=== PATIENT | female | born 1995 | race Hispanic/Latino ===

== ENCOUNTER 2018-12-30 01:45 | Inpatient (IN) | payer MEDICAID ==
[~2018-12-30] VITALS: Ht 154.9 cm; Wt 78.9 kg
[2018-12-30] MEDS ORDERED: PREN-196 PO (01:58)
[2018-12-30 02:14] LABS: APPEARANCE,URINE Turbid (CLEAR); BILIRUBIN,URINE Negative (NEGATIVE); COLOR,URINE Yellow (YELLOW); GLUCOSE, URINE (UA) Negative (NEGATIVE); KETONES,URINE Negative (NEGATIVE); LEUKOCYTE ESTERASE ,URINE Moderate (NEGATIVE); NITRATE,URINE Negative (NEGATIVE); OCCULT BLOOD,URINE Small (NEGATIVE); PH,URINE 7.5 (5.0-8.0); PROTEIN,URINE Negative (NEGATIVE)
[2018-12-30 02:24] LABS: AMORPHOUS SEDIMENT,UR Moderate /LPF (None Seen); BACTERIA,URINE Few /HPF (None Seen)
[2018-12-30] MEDS ORDERED: EPHEDRINE SULFATE 50 MG/ML AMPULE IVP PRN (03:00)
[2018-12-30] MEDS ORDERED: PROMETHAZINE HCL 25 MG/ML 1ML AMPULE IM SCH (03:00)
[2018-12-30] MEDS ORDERED: MEPERIDINE-PF 50 MG/ML SYG IVP ONE (03:00)
[2018-12-30] MEDS ORDERED: NALOXONE HCL 0.4 MG/1 ML ML IV PRN (03:00)
[2018-12-30] MEDS ORDERED: OXYTOCIN-LR 20 UNITS/1000 ML 1,000 ML IV SCH (03:00)
[2018-12-30] MEDS ORDERED: LACTATED RINGERS 500 ML 500 ML IV PRN (03:00)
[2018-12-30] MEDS ORDERED: ROPIVACAINE 0.2% 100ML VIAL 100 ML EP SCH (03:00)
[2018-12-30 03:10] LABS: HEMATOCRIT 39.2 % (36-48); MEAN CORPUSCULAR HEMOGLOBIN 31.6 pg (27.0-33.0); MEAN CORPUSCULAR HGB CONC 35.4 g/dL (32.0-36.0); MEAN CORPUSCULAR VOLUME 89.3 fL (80-100); NUCLEATED RED BLOOD CELLS 0.1 % (0.0-0.19); PLATELET COUNT (AUTO) 136 K/uL (130-400); RED BLOOD CELL COUNT(AUTO) 4.39 MIL/uL (4.00-5.50); RED CELL DISTRIBUTION WIDTH 13.8 % (11.0-15.5); WHITE BLOOD COUNT (AUTO) 8.5 K/uL (4.8-10.8)
[2018-12-30] MEDS: LACTATED RINGERS 1000ML 1,000 ML IV PRN ×2 (05:35→12:45)
[2018-12-30] MEDS ORDERED: MEPERIDINE-PF 50 MG/ML SYG ONE (06:12)
[2018-12-30] MEDS ORDERED: OXYTOCIN 10 USP UNITS/ML 20 UNIT in LACTATED RINGERS 1000ML 1,000 ML IV SCH (09:30)
[2018-12-30] MEDS ORDERED: BENZOCAINE/LANOLIN/ALOE VERA 60 ML AEROSOL TP PRN (15:30)
[2018-12-30] MEDS ORDERED: ACETAMINOPHEN 325 MG TAB PO PRN (15:30)
[2018-12-30] MEDS: IBUPROFEN 600 MG TABLET PO PRN (15:30)
[2018-12-30] MEDS ORDERED: ACETAMINOPHEN-CODEINE 300/30MG TAB PO PRN (15:30)
[2018-12-30] MEDS ORDERED: LANOLIN 30GM OINTMENT TP PRN (15:30)
[2018-12-30] MEDS ORDERED: WITCH HAZEL 1 PAD TP PRN (15:30)
[2018-12-30] MEDS ORDERED: DIPH,PERTUSS(ACELL),TET VAC/PF 0.5 ML VIAL IM PRN (15:30)
[2018-12-30 18:00] VITALS: BP 116/75
--- NOTE | 2018-12-30 18:00 | NUR ---
REPORT RECEIVED FROM [facility] [place] ORIENT[place] TO ROOM AND WAS ASSISTED TO BATHROOM AND VOIDED 700CC OF BLOOD TINGED URINE. PATIENT WAS GIVEN MOTRIN PRIOR TO TRANSFER. SITZ BATH, DERMAPLAST SPRAY, TUCK AND LANOLIN ISSUED AND INSTRUCTED ON USE. PATIENT VITAL SIGNS STABLE AND TOLERATED ACTIVITY TO BATHROOM WITHOUT ANY PROBLEMS.
--- NOTE | 2018-12-30 19:10 | NUR ---
REPORT GIVEN TO CECILIA KOROMA WHILE ROUNDING ON PATIENT.
[2018-12-30 19:25] VITALS: BP 107/68
[2018-12-30] MEDS: DOCUSATE SODIUM 100 MG CAP PO SCH (21:17)
[2018-12-31] VITALS (7 sets, daily range): BP systolic 102–114; BP diastolic 61–70
[2018-12-31] MEDS: IBUPROFEN 600 MG TABLET PO PRN ×2 (05:03→17:37)
[2018-12-31] MEDS: DOCUSATE SODIUM 100 MG CAP PO SCH ×2 (08:54→21:03)
--- NOTE | 2018-12-31 19:55 | NUR ---
Patient; Patient sitting in bed expressing her Breast milk manually assisted by mother. Plan of care discussed with patient and family verbalizes understanding.
--- NOTE | 2018-12-31 20:00 | NUR ---
Patient out from her room.: Patient went to the nursery to visit baby accompanied by her mother.
[2019-01-01 04:45] VITALS: BP 117/82
[2019-01-01] MEDS: IBUPROFEN 600 MG TABLET PO PRN (04:51)
[2019-01-01 06:10] LABS: HEPATITIS Bs ANTIGEN SCREEN P Negative (Negative)
[2019-01-01 07:24] VITALS: BP 114/68
[2019-01-01] MEDS: DOCUSATE SODIUM 100 MG CAP PO SCH (09:08)
[2019-01-01 11:37] VITALS: BP 106/70
--- NOTE | 2019-01-01 13:44 | NUR ---
Emotional Support SW contacted by nurse, baby will need to stay another day. SW met with pt and and educated on [facility]. Couple and agreeable to referral and staying at [facility] until baby is dc since they live in [place]. SW called [facility] and made referral as well as faxed referral over as requested.
[2019-01-01 16:51] VITALS: BP 143/79
--- NOTE | 2019-01-01 17:35 | NUR ---
DISCHARGE PATIENT LEFT UNIT VIA WHEELCHAIR WITH BELONGINGS IN HAND. PATIENT ACCOMPANIED BY FAMILY. PERSONAL VEHICLE USED FOR TRANSPORTATION. BABY STAYED IN NURSERY.
== END 2019-01-01 17:35 | disposition home or self-care (01) | DRG 560 ==
LOC: EDH 01:45 → OBSVTOIN 01:46 → LDH 01:46 → WSH 17:50
PROVIDERS: ADMIT Obstetrics & Gynecology; ATTEND Obstetrics & Gynecology
PROC: 10E0XZZ Delivery of Products of Conception, External Approach (ICD-10-PCS; principal; 2018-12-30)
PROC: 10907ZC Drainage of Amniotic Fluid, Therapeutic from Products of Conception, Via Natural or Artificial Opening (ICD-10-PCS; 2018-12-30)
PROC: 0W8NXZZ Division of Female Perineum, External Approach (ICD-10-PCS; 2018-12-30)
PROC: 00HU33Z Insertion of Infusion Device into Spinal Canal, Percutaneous Approach (ICD-10-PCS; 2018-12-30)
PROC: 3E0R3BZ Introduction of Anesthetic Agent into Spinal Canal, Percutaneous Approach (ICD-10-PCS; 2018-12-30)
DX: O80 Encounter for full-term uncomplicated delivery (principal); Z37.0 Single live birth; Z3A.40 40 weeks gestation of pregnancy
CPT/HCPCS: 36415; 81001; 85027; 86592; 86850; 86900; 86901; 87340; A4314; A4606; G0378; J2175; J2550; J2590; J2795; J7120